=== PATIENT | female | born 1940 | race Caucasian/White ===

== ENCOUNTER → 2021-10-23 | Outpatient (CLI) | payer MEDICARE, OTHER ==
[~2021-10-23] MED LIST: Benazepril HCl40 MG PO; HYDCHL25 PO; METO50 PO; WARF7.5 PO
[2021-10-23 12:08] LABS: BASOPHILS ABSOLUTE AUTO 0.01 K/mm3 (0.00-0.23); BASOPHILS PERCENT AUTO 0 % (0-2); EOSINOPHILS ABSOLUTE AUTO 0.03 K/mm3 (0.00-0.68); EOSINOPHILS PERCENT AUTO 1 % (0-6); Hematocrit 41.1 % (33.0-51.0); Hemoglobin 13.5 g/dL (11.5-16.0); IMMATURE GRAN PERCENT AUTO 0 % (0-1); LYMPHOCYTES ABSOLUTE AUTO 0.58 K/mm3 (0.84-5.20); LYMPHOCYTES PERCENT AUTO 17 % (21-46); MONOCYTES ABSOLUTE AUTO 0.26 K/mm3 (0.16-1.47); MONOCYTES PERCENT AUTO 8 % (4-13); Mean Corpuscular HGB 31.8 pg (26.0-34.0); Mean Corpuscular HGB Conc 32.8 g/dL (31.5-36.5); Mean Corpuscular Volume 97 fL (80-100); Mean Platelet Volume 9.9 fL (9.1-12.4); NEUTROPHILS ABSOLUTE AUTO 2.47 K/mm3 (1.96-9.15); NEUTROPHILS PERCENT AUTO 74 % (41-73); Platelet Count 199 K/mm3 (150-400); RDW Coefficient Variation 13.2 % (11.7-14.2); RDW Standard Deviation 47.3 fL (35.1-46.3); Red Blood Cell Count 4.24 M/mm3 (3.80-5.20); White Blood Cell Count 3.35 K/mm3 (4.00-11.30)
[2021-10-23 12:10] LABS: Albumin, Blood 3.6 g/dL (3.4-5.0); Albumin/Globulin Ratio 1.1 (0.8-1.8); Bilirubin, Total 0.6 mg/dL (0.1-1.0); Bun/Creatinine Ratio 19.1 (12.0-20.0); Creatinine, Blood 1.36 mg/dL (0.40-1.00); Globulin, Blood 3.2 g/dL (2.2-4.0); Potassium, Blood 3.5 mmol/L (3.5-5.5); Total Protein, Blood 6.8 g/dL (6.4-8.2)
[2021-10-23 12:49] LABS: Prothrombin Time Results 40.7 Sec (9.7-11.5)
[2021-10-23 13:15] LABS: International Normalized Ratio 4.26
== END ==
LOC: LAB SHORT 11:25
PROVIDERS: Physician Assistant
DX: Z51.81 Encounter for therapeutic drug level monitoring (principal); R06.00 Dyspnea, unspecified; Z79.899 Other long term (current) drug therapy; Z79.01 Long term (current) use of anticoagulants
CPT/HCPCS: 80053; 83880; 85025; 85610

== ENCOUNTER 2023-11-15 10:20 | Emergency (ER) | payer MEDICARE, OTHER ==
[~2023-11-15] VITALS: Ht 157.5 cm; Wt 135.2 kg
[2023-11-15] MEDS ORDERED: OXYC5 PO (10:36)
[2023-11-15 11:30] LABS: Albumin, Blood 3.8 g/dL (3.4-5.0); Albumin/Globulin Ratio 1.2 (0.8-1.8); Bilirubin, Total 0.8 mg/dL (0.1-1.0); Bun/Creatinine Ratio 19.3 (12.0-20.0); Calcium, Blood 9.2 mg/dL (8.5-10.1); Creatinine, Blood 1.5 mg/dL (0.40-1.00); Globulin, Blood 3.2 g/dL (2.2-4.0); Potassium, Blood 4.8 mmol/L (3.5-5.5)
[2023-11-15] MEDS ORDERED: Propofol 10mg/ml 20 ml Vial (Procedural) IV SCH (11:35)
[2023-11-15] MEDS ORDERED: FentaNYL Citrate 50 MCG/ML 2 ML Injection IV ONE (11:35)
[2023-11-15] MEDS ORDERED: NS 1,000 ML IV SCH (11:35)
[2023-11-15 12:05] VITALS: BP 156/81
== END 2023-11-15 13:31 | disposition home or self-care (01) ==
LOC: ER 10:20
PROVIDERS: Physician Assistant
DX: T84.020A Dislocation of internal right hip prosthesis, initial encounter (principal); Y79.2 Prosthetic and other implants, materials and accessory orthopedic devices associated with adverse incidents; I48.91 Unspecified atrial fibrillation; Z79.01 Long term (current) use of anticoagulants; Z79.899 Other long term (current) drug therapy; X50.9XXA Other and unspecified overexertion or strenuous movements or postures, initial encounter
CPT/HCPCS: 27265; 36415; 73501; 73502; 80053; 93005; 93010; 99152; 99284-25; J2704; J3010; J7030

== ENCOUNTER → 2024-07-05 | Outpatient (CLI) | payer MEDICARE, OTHER ==
[~2024-07-05] MED LIST changes: +OXYC5 PO
== END ==
LOC: LAB SHORT 15:32 → LAB 15:32
DX: L98.9 Disorder of the skin and subcutaneous tissue, unspecified (principal)
CPT/HCPCS: 87081

== ENCOUNTER 2024-09-18 07:57 | Emergency (ER) | payer MEDICARE, OTHER ==
[~2024-09-18] VITALS: Ht 162.6 cm; Wt 87.1 kg
[2024-09-18] MEDS ORDERED: OxyCODONE HCL 5 MG TAB PO ONE (09:25)
[2024-09-18 11:00] VITALS: BP 133/117
== END 2024-09-18 13:46 | disposition home or self-care (01) ==
LOC: ER 07:57
DX: S43.401A Unspecified sprain of right shoulder joint, initial encounter (principal); Z79.01 Long term (current) use of anticoagulants; Z79.899 Other long term (current) drug therapy; Z88.8 Allergy status to other drugs, medicaments and biological substances; I48.91 Unspecified atrial fibrillation; W18.30XA Fall on same level, unspecified, initial encounter; Y92.009 Unspecified place in unspecified non-institutional (private) residence as the place of occurrence of the external cause
CPT/HCPCS: 71045; 73030; 99283-25; A9270

== ENCOUNTER 2024-09-30 08:10 | Inpatient (IN) | payer MEDICARE, OTHER ==
[~2024-09-30] VITALS: Ht 162.6 cm; Wt 81.5 kg
[2024-09-30] MEDS ORDERED: Ondansetron HCl 2 MG / ML 2ML Vial IV ONE (08:50)
[2024-09-30] MEDS ORDERED: Ketorolac Tromethamine 30mg Vial IV ONE (08:50)
[2024-09-30 08:59] LABS: BASOPHILS PERCENT AUTO 0 % (0-2); EOSINOPHILS PERCENT AUTO 0 % (0-6); Hematocrit 27.8 % (33.0-51.0); Hemoglobin 9.1 g/dL (11.5-16.0); IMMATURE GRAN ABSOLUTE AUTO 0.02 K/mm3 (0.00-0.10); IMMATURE GRAN PERCENT AUTO 1 % (0-1); LYMPHOCYTES PERCENT AUTO 26 % (21-46); MONOCYTES ABSOLUTE AUTO 0.11 K/mm3 (0.16-1.47); MONOCYTES PERCENT AUTO 6 % (4-13); Mean Corpuscular HGB 32.6 pg (26.0-34.0); Mean Corpuscular HGB Conc 32.7 g/dL (31.5-36.5); Mean Corpuscular Volume 100 fL (80-100); Mean Platelet Volume 10.4 fL (9.1-12.4); NEUTROPHILS ABSOLUTE AUTO 1.29 K/mm3 (1.96-9.15); NEUTROPHILS PERCENT AUTO 67 % (41-73); Platelet Count 55 K/mm3 (150-400); RDW Coefficient Variation 12.2 % (11.7-14.2); RDW Standard Deviation 44.8 fL (35.1-46.3); Red Blood Cell Count 2.79 M/mm3 (3.80-5.20); White Blood Cell Count 1.92 K/mm3 (4.00-11.30)
[2024-09-30 09:08] LABS: Albumin, Blood 3.1 g/dL (3.4-5.0); Bilirubin, Total 0.8 mg/dL (0.1-1.0); Bun/Creatinine Ratio 16.9 (12.0-20.0); Calcium, Blood 8.8 mg/dL (8.5-10.1); Creatinine, Blood 1.3 mg/dL (0.40-1.00); Globulin, Blood 3.2 g/dL (2.2-4.0); Magnesium, Blood 2.1 mg/dL (1.6-2.4); Potassium, Blood 3.6 mmol/L (3.5-5.5); Total Protein, Blood 6.3 g/dL (6.4-8.2)
[2024-09-30 10:19] LABS: Source, Urine Clean Catch
[2024-09-30 10:22] LABS: Appearance, Urine Clear (Clear); Bilirubin, Urine Neg (Neg); Blood, Urine 2+ (Neg); Glucose Qualitative, Urine Neg (Neg); Ketones, Urine Neg (Neg); Leukocyte Esterase, Urine 2+ (Neg); Nitrite, Urine Neg (Neg); Protein, Urine Neg (Neg); Urobilinogen, Urine NORM (Normal)
[2024-09-30 10:23] LABS: Color, Urine Pale Yellow (P-Yellow)
[2024-09-30 10:29] LABS: Bacteria Rare /hpf; Red Blood Cells, Urine 0-2 /hpf (0-2); Squamous Epithelial Cells Rare /hpf (Few); White Blood Cells, Urine 0-2 /hpf (0-5)
[2024-09-30] MEDS ORDERED: Amiodarone HCl200 MG PO (10:58)
[2024-09-30] MEDS ORDERED: XARELTO20 MG PO (10:58)
[2024-09-30] MEDS ORDERED: HydrALAZINE HCl 20 MG / ML 1ML Vial IV ONE (11:20)
[2024-09-30] MEDS ORDERED: Furosemide 10 MG / ML 2ML Vial IV ONE (11:25)
[2024-09-30] MEDS ORDERED: HydrALAZINE HCl 20 MG / ML 1ML Vial IV PRN (14:10)
[2024-09-30] MEDS ORDERED: FLU VACC TS2024-25(6MOS UP)/PF 45 MCG/0.5 ML SYRINGE IM SCH (14:10)
[2024-09-30 15:40] VITALS: BP 163/75
--- NOTE | 2024-09-30 15:42 | NUR ---
ARRIVAL NOTE: PT ARRIVES TO PCU FROM ED AT 1505. SHE TRANSFERS TO BED WITH 2P ASSIST. SHE IS A/OX4 ABLE TO MAKE HER NEEDS KNOWN. SHE IS ON RA WITH NO REPORTS OF SOB. SHE IS ON TELE IN NSR 60-70S DENIES CHEST PAIN. SBP IS 160S. PT REPORTS FEELING WEAK. SHE HAS A PUREWICK SET TO SUCTION DRAINING YELLOW URINE. PTS LEGS ARE SWOLLEN AND ELEVATED. WOUND ON LOWER EXTRIMITY IS FOLLOWED BY HOME HEALTH NURSE. CALL LIGHT IN REACH, ECHO IN PROGRESS, CARE CONTINUES
--- NOTE | 2024-09-30 16:17 | NUR ---
PT TEARFUL STATING IT HAS BEEN A LONG YEAR AND SHE IS READY IF THE [facility] WANTS TO TAKE HER. THIS RN OFFERED THERAPEUTIC LISTENING AND CHAPLIAN SERVICES. PT ACCEPTED, CALLED PLACED TO [facility].
--- NOTE | 2024-09-30 17:20 | NUR ---
"Spiritual Care | Nurse/Pt. Request Pt. is awake in bed and welcomed my visit. Pt. is unsettled by the pain and discomfort gabbie her chemo-therapy and she verbalized that she didn't want any more treatment for her stage 4 cancer. 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 Pt. also verbalized that her son is her only family and that he lives in [place] and that she didn't want to fight the cancer anymore. Listened with empathy and interest. Pt. mentioned her jainism safia, but has not practiced it for some time. Prayer was made for the Pt. Pt. verbalized gratitude for the spiritual care visit."
[2024-09-30] MEDS ORDERED: Acetaminophen 325 MG TABLET PO PRN (17:55)
[2024-09-30] MEDS ORDERED: Rivaroxaban 10 MG Tab PO SCH ×2 (18:00)
[2024-09-30 20:54] VITALS: BP 123/60
[2024-09-30] MEDS ORDERED: Metoprolol Tartrate 50 MG Tab PO SCH (21:00)
[2024-09-30] MEDS ORDERED: Ondansetron HCl 2 MG / ML 2ML Vial IV PRN (21:35)
[2024-09-30] MEDS ORDERED: TraMADol HCl 50 MG Tab PO PRN (21:35)
[2024-09-30 23:11] VITALS: BP 160/83
[2024-10-01] VITALS (21 sets, daily range): BP systolic 114–213; BP diastolic 49–127
--- NOTE | 2024-10-01 02:48 | NUR ---
SHIFT SUMMARY NEURO: AT BASELINE BESIDES NEW SEVERE HEADACHE.PUPILS PERRLA. EQUAL STRENGTH. PT GIVEN TRAMADOL AND TYLNOL WITH SLIGHT EFFECT. PER ER REPORT PT TAKES ROXICODONE AT HOME. CARDIAC: METOPROLOL HELD DUE TO BRADYCARDIA PRESENT AND PT REPORTS WORSENING BRADYCARDIA WHILE SLEEPING. +4 BLE EDEMA. PULSES PRESENT THROUGHOUT. LUNGS: WNL GI/: PT REQESTING STOOL SOFTNERS. PUREWICK CHANGED THIS SHIFT. RN WILL REQUEST TO HAVE PICC VERIFIED.
[2024-10-01] MEDS ORDERED: NS 1,000 ML IV ONE ×2 (08:53→09:05)
[2024-10-01] MEDS ORDERED: Amiodarone HCl 200 MG Tab PO SCH (09:00)
[2024-10-01] MEDS ORDERED: AmLODIPine Besylate 5 MG Tab PO SCH (09:00)
[2024-10-01] MEDS ORDERED: Lisinopril 20 MG Tab PO SCH (09:00)
--- NOTE | 2024-10-01 09:08 | NUR ---
AM NOTES; PT WAS UP IN HE CHAIR THIS MORNING EATING BREAKFAST, VITALS DONE HRR AFIB 70'S, SBP 200-220'S HYDRALAZINE IV 10MG WAS GIVEN BROUGHT IT DOWN TO 140'S, SATS ABOVE 95% ON RA, AFEBRILE. PT THEN STARTED COMPLAINING OF FEELING SICK AND REPORTED NOT ABLE TO EAT LATELY AND NOW SHE'S WAS FEELING HUNGRY AND ATE ALL HER BREAKFAST OFFERED ZOFRAN REFUSED AT FIRST BUT WHEN SHE WAS FEELING REALLY SICK FINALLY AGREED TO TAKE ZOFRAN, THEN PT STARTED C/O CHEST PAIN 5/10 MORE OF LIKE RPESSURE, THEN PT STATED "I DONT REALLY FEEL GOOD, I FEEL LIKE IM GOING TO PASS OUT, IM GOING TO PASS OUT.." THIS RN ASKED FOR LICENSED PROFESSIONAL COUNSELOR AND TKCE ALSO ATTEMPTING TO GET ANOTHER RUN OF BP UNABLE TO GET ONE SBP WAS CALCULATING AT 48. PT GOT BACK TO BED VIA GAIT BELT AND SHEET UNDERNEATH HER PT STARTED TO BE UNRESPONSIVE WITH EYES STARING AT THE CEILING, PT WAS PLACED IN TRENDELENBERG POSITION RIGHT AWAY AND PT STARTED RESPONDING. PT STAED SHE COULDNT REMEMBER ANYTHING EXCEPT THAT SHE'S GOING TO PASSOUT, 250 MLS OF FLUID BOLUS GIVEN DR JACKSON CALLED AND MADE AWARE OF THE SITUATION. AND ALSO THAT MORNING MEDS WAS GIVEN METOPROLOL, AMIO, AND AMLODIPINE. ORDER TO GIVE MORE FLUIDS IF BP REMAINS SOFT. BP NOW AT 116/50 MAP 69. PT NOW MUCH FEELING BETTER, IN FLAT POSTITION AT THIS TIME, RECHECKING BP Q5 MINS UNTIL STABLE. WILL CONTINUE TO MONITOR
[2024-10-01 10:13] LABS: BASOPHILS PERCENT AUTO 0 % (0-2); EOSINOPHILS ABSOLUTE AUTO 0.01 K/mm3 (0.00-0.68); EOSINOPHILS PERCENT AUTO 1 % (0-6); Hematocrit 27.8 % (33.0-51.0); Hemoglobin 9.2 g/dL (11.5-16.0); IMMATURE GRAN ABSOLUTE AUTO 0.01 K/mm3 (0.00-0.10); IMMATURE GRAN PERCENT AUTO 1 % (0-1); LYMPHOCYTES ABSOLUTE AUTO 0.57 K/mm3 (0.84-5.20); LYMPHOCYTES PERCENT AUTO 26 % (21-46); MONOCYTES PERCENT AUTO 9 % (4-13); Mean Corpuscular HGB 33.3 pg (26.0-34.0); Mean Corpuscular HGB Conc 33.1 g/dL (31.5-36.5); Mean Corpuscular Volume 101 fL (80-100); Mean Platelet Volume 11.1 fL (9.1-12.4); NEUTROPHILS ABSOLUTE AUTO 1.39 K/mm3 (1.96-9.15); NEUTROPHILS PERCENT AUTO 64 % (41-73); Platelet Count 65 K/mm3 (150-400); RDW Coefficient Variation 12.5 % (11.7-14.2); RDW Standard Deviation 46.4 fL (35.1-46.3); Red Blood Cell Count 2.76 M/mm3 (3.80-5.20); White Blood Cell Count 2.18 K/mm3 (4.00-11.30)
[2024-10-01 10:46] LABS: Albumin, Blood 2.8 g/dL (3.4-5.0); Bilirubin, Total 0.4 mg/dL (0.1-1.0); Bun/Creatinine Ratio 16.1 (12.0-20.0); Creatinine, Blood 1.55 mg/dL (0.40-1.00); Globulin, Blood 2.9 g/dL (2.2-4.0); Potassium, Blood 3.8 mmol/L (3.5-5.5); Total Protein, Blood 5.7 g/dL (6.4-8.2)
--- NOTE | 2024-10-01 14:17 | NUR ---
INITIAL PC VISIT: MET WITH PT IN HER ROOM. PT IS AWAKE AND ORIENTED AND ABLE TO HAVE MEANINGFUL DISCUSSION. PT GIVES ACCOUNT OF PAST YEAR WITH CANCER TX. DESCRIBES SHE HAS HAD 4 DIFFERENT CHEMO TREATMENTS AND ALL HAVE NOT BEEN TOLERABLE. SHE STATES "I AM JUST DONE WITH CHEMO TREATMENT". CLARIFIED WITH PT IF SHE WANTS TO STOP ALL CANCER TREATMENT AT THIS TIME AND SHE STATES "YES". SHE WANTS TO KNOW WHAT THE NEXT STEP WOULD BE. WE DISCUSS OPTION OF HOSPICE CARE ONCE DISCHARGED FROM THIS HOSPITAL STAY TO TREAT HER ACUTE ILLNESS. DISCUSSION MADE ON WHAT SERVICES THEY PROVIDE AND GOALS OF HOSPICE QUALITY VS QUANTITY OF LIFE. LEFT PT WITH PAMPHLET 'CONSIDERING COMFORT CARE' AND 'HARD CHOICES FOR LOVING PEOPLE'. PT STATES SHE WOULD LIKE TO READ OVER PAMPHLETS AND REVISIT TOMORROW. ADVISED I WOULD COME IN TOMORROW TO CHECK ON HER. PT REPORTS PAIN TO RIGHT SHOULDER FROM A FALL SHE HAD A WEEK AGO. DENIES NEEDS FOR PAIN MEDICATION. PT REPORTS SYMPTOMS ARE MANAGED.
[2024-10-01] MEDS ORDERED: Docusate Sodium/Senna 1 Tab PO PRN (17:40)
[2024-10-01] MEDS ORDERED: Polyethylene Glycol 3350 17 gm PO PRN (17:40)
--- NOTE | 2024-10-01 18:14 | NUR ---
PT SUMMARY; SEE PREVIOUS NOTE. PT'S BLOOD PRESSURE STABILIZE SINCE THIS MORNING STAYED IN THE 140S. PT HAS RESTED IN BED MOST OF THE SHIFT, HRR REMAINED SINUS 60'S, SATS ABOVE 95% ON RA, AFEBRILE. PT RECEIVED A BED BATH, PICC LINE DRESSING WAS CHANGED. PUREWICK REMAINED IN PLACE, HAD ABOUT 350 MLS URINE OUT DARK YELLOW URINE. PT C/O NOT HAVING A BM YET FOR THE LAST COUPLE DAYS BOWEL CARE ORDERS IN PLACE SENNA WAS GIVEN. PT ALSO COMPLAINED OF 8/10 HEADACHE TYLENOL WAS GIVEN AND WAS EFFECTIVE. PT NOW UP IN THE RECLINER EATING DINNER, NO ISSUES AT THIS TIME. PALLIATIVE CARE NURSE CAME BY TO DISCUSS ADVANCE CARE PLANNING, NO CHANGE OF PLANS AT THIS TIME. NO OTHER ISSUES REPORTED. WILL REPORT TO ONCOMING SHIFT
[2024-10-02 00:10] VITALS: BP 175/88
[2024-10-02 04:10] VITALS: BP 177/80
--- NOTE | 2024-10-02 06:47 | NUR ---
SHIFT SUMMARY NEURO: WNL. NO HEADACHE TONIGHT CARIAC: DIZZINESS AND INCREASED HR WHEN STANDING. PT WAS BRADYCARDIC SO METOPROLOL HELD. HTN WITH SYSTOLICS IN THE 170's. +3 EDEMA BLE. LUNGS: WNL GI/: PT AMBULATING WITH WALKER TO THE BATHROOM.
[2024-10-02 07:58] VITALS: BP 163/82
[2024-10-02] MEDS ORDERED: Melatonin 3 MG Tab PO PRN (11:10)
[2024-10-02 11:30] VITALS: BP 171/84; BP 176/89
[2024-10-02] MEDS ORDERED: Bisacodyl 10 MG Supp PR PRN (11:40)
[2024-10-02 16:18] VITALS: BP 157/76
--- NOTE | 2024-10-02 17:31 | NUR ---
PT SUMMARY; NO ACUTE CHANGE FOR THE SHIFT. PT HAS BEEN UP IN THE CHAIR FOR MEALS. PT AMBULATED UP TO THE DOOR AT LUNCH TIME VIA WALKER, TOLERATED WELL. VITALS HRR SR 60'S, SBP 140-170'S, SATS ABOVE 95% ON RA, AFEBRILE. CURRENTLY STILL WORKING ON PT'S BOWEL CARE, MIRALAX AND STOOL SOFTENER WAS GIVEN THIS MORNING WIH NO RESULT YET, OFFERED SUPPOSITORY, REFUSED FOR NOW. AGREED TO [facility] AGUILLON FOR DINNER. PT USES PUREWICK FOR VOIDING. PT HAS GREAT APPETITE AT THIS TIME. NO OTHER ISSUES REPORTED. DR JACKSON MADE AOME MEICATION CHANGED ON HER BP MEDS. PT/OT ORDERED WELL. WILL REPORT TO ONCOMING SHIFT
[2024-10-02] MEDS ORDERED: Phenyleph/Mineral Oil/Petrolat 1 APPLIC/57 GM Tube PR PRN (19:45)
[2024-10-02 19:56] VITALS: BP 184/80
[2024-10-02] MEDS ORDERED: FentaNYL Citrate 50 MCG/ML 2 ML Injection IV PRN (20:25)
[2024-10-02] MEDS ORDERED: Metoprolol Tartrate 25 MG Tab PO SCH (21:00)
[2024-10-02] MEDS ORDERED: Docusate Sodium/Senna 1 Tab PO SCH (21:00)
[2024-10-02] MEDS ORDERED: Witch Hazel/Glycerin PADS TOP PRN (23:30)
[2024-10-03] VITALS (7 sets, daily range): BP systolic 133–196; BP diastolic 72–81
[2024-10-03] MEDS ORDERED: HydrALAZINE HCl 20 MG / ML 1ML Vial IV PRN (02:00)
[2024-10-03] MEDS ORDERED: HydrALAZINE HCl 20 MG / ML 1ML Vial IV ONE (02:00)
[2024-10-03 05:15] LABS: BASOPHILS PERCENT AUTO 0 % (0-2); EOSINOPHILS ABSOLUTE AUTO 0.01 K/mm3 (0.00-0.68); EOSINOPHILS PERCENT AUTO 0 % (0-6); Hematocrit 27.2 % (33.0-51.0); IMMATURE GRAN ABSOLUTE AUTO 0.03 K/mm3 (0.00-0.10); IMMATURE GRAN PERCENT AUTO 1 % (0-1); LYMPHOCYTES ABSOLUTE AUTO 0.92 K/mm3 (0.84-5.20); LYMPHOCYTES PERCENT AUTO 31 % (21-46); MONOCYTES ABSOLUTE AUTO 0.35 K/mm3 (0.16-1.47); MONOCYTES PERCENT AUTO 12 % (4-13); Mean Corpuscular HGB Conc 33.1 g/dL (31.5-36.5); Mean Corpuscular Volume 103 fL (80-100); NEUTROPHILS ABSOLUTE AUTO 1.68 K/mm3 (1.96-9.15); NEUTROPHILS PERCENT AUTO 56 % (41-73); Platelet Count 122 K/mm3 (150-400); RDW Coefficient Variation 12.5 % (11.7-14.2); RDW Standard Deviation 46.7 fL (35.1-46.3); Red Blood Cell Count 2.65 M/mm3 (3.80-5.20); White Blood Cell Count 2.99 K/mm3 (4.00-11.30)
[2024-10-03 05:45] LABS: Bun/Creatinine Ratio 18.1 (12.0-20.0); Calcium, Blood 8.4 mg/dL (8.5-10.1); Creatinine, Blood 1.44 mg/dL (0.40-1.00); Potassium, Blood 4.3 mmol/L (3.5-5.5)
--- NOTE | 2024-10-03 07:20 | NUR ---
SHIFT SUMMARY: PT IS A&OX4, PLEASANT AND COOPERATIVE WITH CARE. HTN, SYS >180, REMAINING VSS ON RA. SB-SR 55-60 BPM. +4 EDEMA TO BLE. PT C/O PAIN 10/10 IN RECTUM AREA AFTER STRAINING TO HAVE LARGE BM. LARGE EXTERNAL HEMORRHOID. APPLIED HEMORRHOIDAL CREAM, AND TUCKS MEDICATED PADS. ALSO MEDICATED WITH PRN TRAMADOL, THIS DID NOTHING FOR PT'S PAIN. MEDICATED WITH PRN 50 MCG IV FENTANYL, WITH GOOD RELIEF. MEPILEX TO LEFT INNER ANKLE, C/D/I. TOLERATING A REGULAR DIET. X1 HILDA WITH FWW TO BR. WICKING SYSTEM DRAINING ADEQUATE AMOUNTS OF DARK YELLOW URINE. NO BM THIS SHIFT. PT STATED TO THIS RN THAT SHE JUST WANTS TO BE DONE, AND HAVE THE LORD TAKE HER. SHE IS IN TEARS, TIRED OF THE PAIN. OFFERED THERAPEUTIC LISTENING, COMFORTED HER, AND GAVE MY SYMPATHY FOR HER NOT FEELING WELL. BED IN LOWEST POSITION, CALL LIGHT WITHIN REACH. CALLS APPROPRIATELY AND IS ABLE TO ADVOCATE NEEDS EFFECTIVELY.
[2024-10-03] MEDS ORDERED: OXYC5 PO (07:42)
--- NOTE | 2024-10-03 11:23 | NUR ---
UPDATE PT CALLED RN WITH COMPLAINTS OF PAIN IN HER RECTUM. PT TEARFUL AND REPORTS PAIN IS 10/10. OINTMENT AND TUCK'S PADS PLACED PER EMAR. PT MEDICATED FOR PAIN PER EMAR. PT RESTING ON HER SIDE.
[2024-10-03] MEDS ORDERED: Lidocaine 2% Jelly Uro-Jet TOP PRN (14:10)
--- NOTE | 2024-10-03 14:10 | NUR ---
PC VISIT: CALL FROM BS RN TO REPORT PT IS HAVING SEVERE PAIN R/T HEMORRHOIDS. MET WITH PT TO DISCUSS SYMPTOMS MANAGEMENT. PT REPORTS SHE DID NOT HAVE A BM X 4 DAYS AND THEN WHEN SHE FINALLY HAD A BM IT EXACERBATED HER HEMMORHOIDS. PT IS NOW HAVING MULTIPLE BM'S TODAY AND IS REPORTING "SEVERE PAIN". AT THIS TIME PT IS LYING ON HER SIDE, SHE IS GRIMACING AND MOANING AT TIMES WHEN PASSING GAS. CONSULTED WITH PC TEAM AND REQUESTED LIDOCAINE UROJET FROM DR. MOSQUEDA. DR. MOSQUEDA AGREED WITH POC AND ORDERED LIDOCAINE UROJET RECTALLY Q4PRN PAIN. PT WAS EDUCATED ON MEDICATION AND POTENTIAL SIDE EFFECTS. PT AGREES TO TRY THIS MEDICATION FOR HER PAIN FENTANYL, TRAMADOL, TUCKS AND PREP H HAVE BEEN INNEFECTIVE. ALSO RE-ADDRESSED HOSPICE SERVICES WITH PT. PT IS STILL UNDECIDED AT THIS TIME. DISCUSSED CURRENT SYMPTOMS AND PROGRESSION OF ILLNESS. PT STATES SHE HAS HOME HEALTH SERVICES WITH [facility] AND IF SHE NEEDS TO SHE WILL TRANSITION TO HOSPICE WITH THEM WHEN THE TIME COMES TO THAT.
[2024-10-03] MEDS ORDERED: Rivaroxaban 10 MG Tab PO SCH (18:00)
--- NOTE | 2024-10-03 18:19 | NUR ---
SHIFT SUMMARY PT REMAINS ALERT AND ORIENTED. BP STABLE. HR REMAINS SB TO NSR LOW 60'S. O2 SATS REMAIN ABOVE 90% ON RA. PT HAS BEEN UP MULTIPLE TIMES THIS SHIFT TO HAVE BM. PT HAS BRIGHT RED BLEEDING WITH BM AND PAIN. PT HAS BEEN PAINFUL IN HER RECTUM MOST OF SHIFT AND HAVING DIFFICUTLY FINDING RELIEF DESPITE MULTIPLE INTERVENTIONS. PT STATES THIS EVENING THAT PAIN IS 2/10. PT ABLE TO AMBULATE TO BATHROOM NEEDED WITH SBA AND FWW. PT UP TO CHAIR FOR ALL MEALS. WILL REPORT OFF TO ONCOMING MANDY
[2024-10-04 04:45] VITALS: BP 150/70
--- NOTE | 2024-10-04 06:54 | NUR ---
SHIFT SUMMARY: PT IS A&OX4, PLEASANT AND COOPERATIVE WITH CARE. HTN, SYS >180, REMAINING VSS ON RA. SB-SR 55-60 BPM. PT C/O PAIN 10/10 IN RECTUM AREA R/T EXTERNAL HEMORRHOID. APPLIED HEMORRHOIDAL CREAM, AND LIDOCAINE. MEDICATED WITH PRN 50 MCG IV FENTANYL, WITH GOOD RELIEF. MEPILEX TO LEFT INNER ANKLE, C/D/I. TOLERATING A REGULAR DIET. X1 ASSIST WITH FWW TO BR. WICKING SYSTEM DRAINING ADEQUATE AMOUNTS OF DARK YELLOW URINE. X2 SMALL BM'S THIS SHIFT, PT DID HAVE SOME BLEEDING DURING THIS. BED IN LOWEST POSITION, CALL LIGHT WITHIN REACH. CALLS APPROPRIATELY AND IS ABLE TO ADVOCATE NEEDS EFFECTIVELY.
[2024-10-04 07:44] VITALS: BP 141/77
--- NOTE | 2024-10-04 07:46 | NUR ---
ASSUMPTION NOTE; THIS RN TO ASSUME CARE OF PATIENT. PATIENT SITTING IN CHAIR AND DRINKING COFFEE. PATIENT DENIED FEELING CHEST PAIN/PRESSURE OR FEELING SHORT OF BREATH. PAIENTS PAIN IS A 0 AND IS UNDER CONTROL. PATIENT VITAL SIGNS STABLE AND PATIENT DENYING ANY NEEDS AT THIS MOMENT.
[2024-10-04] MEDS ORDERED: OxyCODONE HCL 5 MG TAB PO PRN (08:30)
--- NOTE | 2024-10-04 09:59 | NUR ---
Pt. is awake and sitting in a chair. Pt. is unsettled after having eaten some oatmeal for breakfast. Pt. displayed evidence of feeling miserable but welcomed prayer. Prayed with Pt. Pt. vebralized gratitude for the spiritual care visit.
[2024-10-04 10:14] LABS: BASOPHILS ABSOLUTE AUTO 0.01 K/mm3 (0.00-0.23); BASOPHILS PERCENT AUTO 0 % (0-2); EOSINOPHILS ABSOLUTE AUTO 0.02 K/mm3 (0.00-0.68); EOSINOPHILS PERCENT AUTO 1 % (0-6); Hematocrit 30.8 % (33.0-51.0); Hemoglobin 10.1 g/dL (11.5-16.0); IMMATURE GRAN ABSOLUTE AUTO 0.02 K/mm3 (0.00-0.10); IMMATURE GRAN PERCENT AUTO 1 % (0-1); LYMPHOCYTES ABSOLUTE AUTO 0.68 K/mm3 (0.84-5.20); LYMPHOCYTES PERCENT AUTO 24 % (21-46); MONOCYTES ABSOLUTE AUTO 0.27 K/mm3 (0.16-1.47); MONOCYTES PERCENT AUTO 10 % (4-13); Mean Corpuscular HGB 33.6 pg (26.0-34.0); Mean Corpuscular HGB Conc 32.8 g/dL (31.5-36.5); Mean Corpuscular Volume 102 fL (80-100); Mean Platelet Volume 9.8 fL (9.1-12.4); NEUTROPHILS ABSOLUTE AUTO 1.82 K/mm3 (1.96-9.15); NEUTROPHILS PERCENT AUTO 65 % (41-73); Platelet Count 227 K/mm3 (150-400); RDW Coefficient Variation 12.8 % (11.7-14.2); RDW Standard Deviation 46.9 fL (35.1-46.3); Red Blood Cell Count 3.01 M/mm3 (3.80-5.20); White Blood Cell Count 2.82 K/mm3 (4.00-11.30)
[2024-10-04 10:36] LABS: Bun/Creatinine Ratio 19.3 (12.0-20.0); Calcium, Blood 8.6 mg/dL (8.5-10.1); Creatinine, Blood 1.35 mg/dL (0.40-1.00); Potassium, Blood 4.4 mmol/L (3.5-5.5)
--- NOTE | 2024-10-04 11:17 | NUR ---
PC NOTE: 0918 VISIT PT IN ROOM IN HER CHAIR. SHE IS CURRENTLY NAUSEOUS. PRIMARY RN MEDICATED WITH ZOFRAN RECENTLY. SPOKE TO RN AND SHE STATES SHE WILL RE-EVAL AND IF ZOFRAN INEFFECTIVE WILL CALL MD FOR NEW MEDICATION FOR NAUSEA. LIDOCAINE GEL HAS BEEN EFFECTIVE IN TREATING HEMORRHOID PAIN. PT HAS CHOSEN TO DC WITH HOSPICE SERVICES WITH [facility]. SPOKE TO KAREL WITH [facility] AND PT TO TRANSITION FROM HOME HEALTH TO HOSPICE WHEN PT IS DISCHARGED FROM HOSPITAL.
--- NOTE | 2024-10-04 11:57 | NUR ---
MD AT BEDSIDE: MD MOSQUEDA AT BEDSIDE. PATIENT EXPRESSED CONTINUEING NAUSEA AFTER GETTING ZOFRAN, NEW MEDICATIONS WERE ADDED. PATIENT PLAN TO DISCHARGE TOMORROW PATIENT EXPRESSED NOT FEELING READY TO GO YET. PATIENT IS MEDICAL WITH TELE STATUS.
[2024-10-04] MEDS ORDERED: Metoclopramide HCl 5MG / ML 2ML Vial IV PRN (12:00)
[2024-10-04 12:57] VITALS: BP 116/105
[2024-10-04 16:00] VITALS: BP 172/85
--- NOTE | 2024-10-04 16:15 | NUR ---
UPDATE: PATIENT COMPLAINED ABOUT PAIN, MEDICATED PER EMAR, BLOOD PRESSURE WAS ELEVATED DUE TO PAIN, GAVE ADDIONAL PAIN MEDICATION PER EMAR & WILL CHECK BLOOD PRESSURE ONCE THE MEDCIATION HAS KICKED IN. HAS CALL LIGHT WITHIN REACH & BED IN LOWEST POSITION, NOT NEEDING ANYTHING AT THIS TIME.
[2024-10-04 17:41] VITALS: BP 166/99
--- NOTE | 2024-10-04 17:55 | NUR ---
SHIFT SUMMARY: PATIENT IS ALERT AND ORIENTED X4 AND COOPERATIVE WITH HER CARE. IS ABLE TO MAKE NEEDS KNOWN AND USES CALL LIGHT APPRIRATELY. PATIENT IS ON TELE SHOWING SINUS RYTHM TO SINUS ARTURO WITH RATE BETWEEN 59-70'S. PATIENT ON ROOM AIR SATTING >92%, EVEN AND UNLABORED RESPIRATIONS. PATIENT WAS MEDICATED THROUGHOTU SHIFT FOR HEMMROID PAIN WITH SOME RELIEF. BLOOD PRESSURE BECAME ELVATED WHEN PATIENT WOULD HAVE BOUTS OF PAIN BUT WOULD LEVEL OUT ONCE THE MEDICATIONS KICKED IN. PATIENT CONTINUES TO HAVE SMALL AMOUNTS OF BLOOD WHEN WIPING AND GOING TO THE BATHROOM. PATIENT AWARE PLAN IS TO DISCHARGE TOMROROW WITH HOSPICE SHE DIDN'T FEEL UP TO LEAVING TODAY. PATIENT IS A 1 PERSON ASSIST WITH THE FRONT WHEELED WALKER. PATIENT HAS CALL LIGHT WITHIN REACH, BED IN LOWEST POSITION AND STATING NOTHING IS NEEDED CURRENLTY.
[2024-10-04 20:58] VITALS: BP 155/67
[2024-10-05 04:03] VITALS: BP 166/80
[2024-10-05 04:18] LABS: BASOPHILS PERCENT AUTO 0 % (0-2); EOSINOPHILS ABSOLUTE AUTO 0.02 K/mm3 (0.00-0.68); EOSINOPHILS PERCENT AUTO 1 % (0-6); Hematocrit 27.4 % (33.0-51.0); Hemoglobin 8.8 g/dL (11.5-16.0); IMMATURE GRAN ABSOLUTE AUTO 0.03 K/mm3 (0.00-0.10); IMMATURE GRAN PERCENT AUTO 1 % (0-1); LYMPHOCYTES PERCENT AUTO 32 % (21-46); MONOCYTES ABSOLUTE AUTO 0.42 K/mm3 (0.16-1.47); MONOCYTES PERCENT AUTO 17 % (4-13); Mean Corpuscular HGB Conc 32.1 g/dL (31.5-36.5); Mean Corpuscular Volume 103 fL (80-100); Mean Platelet Volume 9.9 fL (9.1-12.4); NEUTROPHILS ABSOLUTE AUTO 1.27 K/mm3 (1.96-9.15); NEUTROPHILS PERCENT AUTO 50 % (41-73); Platelet Count 245 K/mm3 (150-400); RDW Coefficient Variation 13.1 % (11.7-14.2); RDW Standard Deviation 47.8 fL (35.1-46.3); Red Blood Cell Count 2.67 M/mm3 (3.80-5.20); White Blood Cell Count 2.54 K/mm3 (4.00-11.30)
[2024-10-05 04:34] LABS: Bun/Creatinine Ratio 18.8 (12.0-20.0); Calcium, Blood 8.5 mg/dL (8.5-10.1); Creatinine, Blood 1.49 mg/dL (0.40-1.00); Potassium, Blood 4.5 mmol/L (3.5-5.5)
--- NOTE | 2024-10-05 06:48 | NUR ---
SHIFT SUMMARY: PT IS A&OX4, PLEASANT AND COOPERATIVE WITH CARE. VSS ON RA. SB-SR 55-60 BPM, PT DID ARTURO DOWN TO 50 BPM WHILE SLEEPING. DENIES PAIN. MEPILEX TO LEFT INNER ANKLE, C/D/I. TOLERATING A REGULAR DIET. X1 ASSIST WITH FWW TO BR. WICKING SYSTEM DRAINING ADEQUATE AMOUNTS OF YELLOW URINE. X1 BM THIS SHIFT, PT DID HAVE SOME BLEEDING DURING THIS. BED IN LOWEST POSITION, CALL LIGHT WITHIN REACH. CALLS APPROPRIATELY AND IS ABLE TO ADVOCATE NEEDS EFFECTIVELY.
[2024-10-05 08:16] VITALS: BP 162/77
[2024-10-05] MEDS ORDERED: Guar Gum, Partially Hydrolyzed 4 GM Pack PO SCH (09:00)
[2024-10-05] MEDS ORDERED: AMLO10 PO (10:16)
[2024-10-05] MEDS ORDERED: ACET325 PO (10:17)
[2024-10-05] MEDS ORDERED: DOCUZEN 8.6-501 EACH PO (10:18)
[2024-10-05] MEDS ORDERED: [UNRECOGNIZED DRUG - OTHER] TOP (10:20)
[2024-10-05] MEDS ORDERED: NUTRISOURCE FI1 EACH PO (10:21)
[2024-10-05] MEDS ORDERED: Xylocaine5 M1 TOP (10:23)
[2024-10-05] MEDS ORDERED: PREPARATION H1 EAC4 TOP (10:24)
--- NOTE | 2024-10-05 13:26 | NUR ---
MET WITH PATIENT TO FILL OUT POLST. REVIEWED OPTIONS AND SHE SELECTED DNR AND COMFORT MEASURES ONLY. CARE COORDINATION ARRIVED DURING MY VISIT. LEFT POLST WITH CC FOR PROVIDER SIGNITURE. ROUNDED THIS AFTERNOON AND SIGNITURE WAS OBTAINED.
[2024-10-05 16:27] VITALS: BP 122/66
--- NOTE | 2024-10-05 16:50 | NUR ---
Transfer note Pt alert, oriented x4; anxious but cooperative with care. Pt up in chair and 1 person assist in room. Pt reports pain to rectum, medicated x1 this am. Pt denies chest pain/pressure, sob, nausea, dizziness and numb/tingling. Tele sinus/sinus migdalia, bp stable. Edema noted to ble. Spo2 >90% on ra, breathing even and unlabored. Abd soft, nontender, +bt. Other vss. PLans to discharge this am home with hospice, pt told a volunteer that she was concerned that she did not have anyone to help her at home MD olimpia notified, Care management to room to assist with discharge planning, pt contesting discharge this afternoon. Discharge held; home care attendant to discuss with ; had already faxed medications to [facility] on [address], per patient request. Pt transfered to medical floor via wheelchair at 1644.
[2024-10-05 17:03] VITALS: BP 156/72
--- NOTE | 2024-10-05 17:04 | NUR ---
SHIFT SUMMARY/TRANSFER- PT ARRIVED 1650, 2 RN SKIN CHECK PERFORMED BY THIS RN AND ALONSO RN. SKIN INTACT, NO RASHES, OPEN AREAS BESIDE LEFT MEDIAL ANKLE AREA, PICS IN CHART. MULTIPLE BRUISES ON BLE. ON ROOM AIR, TELE RUNNING SINUS RHYTHM 74 BPM. PT CONTINENT USING BATHROOM APPROPRIATELY USING WALKER WITH SBA. POWERGLIDE UPPER LEFT ARM. BED IN LOWEST POSITION, CALL LIGHT WITHIN REACH.
[2024-10-05 20:32] VITALS: BP 179/93
[2024-10-06 04:41] VITALS: BP 154/77
--- NOTE | 2024-10-06 05:04 | NUR ---
SHIFT SUMMARY: PT AOX4 AND ABLE TO GET UP TO THE RESTROOM WITH 1PA/ SBA. PT WEAK AND SLOW BUT STEADY ON HER FEET. COMPLAINTS OF SEVERE PAIN DUE TO HEMMORHOIDS AFTER HAVING A BOWEL MOVEMENT. MEDICATED PER EMR. PT COOPERATIVE AND VERY PLEASANT. CALLS APPROPRIATELY AND ABLE TO MAKE NEEDS KNOWN. NO ACUTE EVENTS OVERNIGHT. TOLERATING MEDICATIONS WELL AND ANXIOUS ABOUT DISCHARGE PLANNING. AFRAID OF HOW "WEAK" SHE IS, BUT STATES SHE'LL FEEL SAFER WITH HER SON AT HOME HELPING HER. PT SLEEPING IN BED, BED IN LOWEST POSITION, CALL LIGHT IN REACH. CONTINUING CARE.
[2024-10-06 08:14] VITALS: BP 169/84
--- NOTE | 2024-10-06 15:21 | NUR ---
DISCHARGE NOTE: WENT OVER DISCHARGE WITH THE PATIENT BASED ON DISCHARGE FROM 10/05/24. NO QUESTIONS FROM THE PATIENT. HER NEIGHBOR/FRIEND AT BEDSIDE TO TAKE HER HOME. BELONGINGS COLLECTED, PATIENT DRESSED, AND PICC LINE REMOVED FROM IT SECURITY CONSULTING DIRECTOR. PATIENT WHEELED DOWN IN WHEELCHAIR, NO SIGNS OR SYMPTOMS OF DISTRESS, WITH DISCHARGE.
--- NOTE | 2024-10-06 15:49 | NUR ---
CASE CONFRENCE- PATIENT IS PENDING DISCHARG THIS SHIFT. NO NEEDS AT THIS TIME. PC WILL CONTINUE TO PROVIDE ASSISTANCE NEEDED
== END 2024-10-06 15:21 | disposition hospice, home (50) | DRG 305 ==
LOC: ER 08:10 → PCU 14:08 → MEDS 14:08 → PCU 15:00 → MEDS 10-05 16:42
PROVIDERS: Family Medicine; Student in an Organized Health Care Education/Training Program; ADMIT Internal Medicine
DX: I16.0 Hypertensive urgency (principal); I16.1 Hypertensive emergency; C78.7 Secondary malignant neoplasm of liver and intrahepatic bile duct; D61.818 Other pancytopenia; K92.1 Melena; Z66 Do not resuscitate; K64.4 Residual hemorrhoidal skin tags; K59.00 Constipation, unspecified; G89.29 Other chronic pain; Z96.641 Presence of right artificial hip joint; R53.1 Weakness; I50.9 Heart failure, unspecified; E78.5 Hyperlipidemia, unspecified; I87.8 Other specified disorders of veins; E66.9 Obesity, unspecified; C50.912 Malignant neoplasm of unspecified site of left female breast; I13.0 Hypertensive heart and chronic kidney disease with heart failure and stage 1 through stage 4 chronic kidney disease, or unspecified chronic kidney disease; I48.0 Paroxysmal atrial fibrillation; N18.9 Chronic kidney disease, unspecified; Z51.11 Encounter for antineoplastic chemotherapy; Z79.01 Long term (current) use of anticoagulants; Z88.8 Allergy status to other drugs, medicaments and biological substances; Z79.899 Other long term (current) drug therapy; Z79.891 Long term (current) use of opiate analgesic; Z98.890 Other specified postprocedural states; Z90.710 Acquired absence of both cervix and uterus; Z87.19 Personal history of other diseases of the digestive system; Z86.711 Personal history of pulmonary embolism; Z68.29 Body mass index [BMI] 29.0-29.9, adult
CPT/HCPCS: 51798; 71046; 71260; 80048; 80053; 81001; 83735; 83880; 84484; 85025; 85379; 87086; 93005; 93010; 93306; 96374; 96375; 97110; 97161; 99285-25; A9270; J0360; J1885; J1940; J2405; J2765; J3010; J7030; Q9967